=== PATIENT | male | born 1950 | race Caucasian/White ===

== ENCOUNTER 2022-01-09 23:44 | Emergency (ER) | payer MEDICARE ==
[~2022-01-09] VITALS: Ht 175 cm; Wt 94.3 kg
--- NOTE | 2022-01-09 23:52 | ED GI ---
General Stated Complaint: SYNCOPE Source of Information: Patient Exam Limitations: No Limitations History of Present Illness Date Seen by Provider: Jan 09, 2022 Time Seen by Provider: 23:38 Initial Comments 81-year-old male presents to the emergency department today for rectal bleeding. He had a colonoscopy on Tuesday and had a biopsy. He was fine on but started to have dark red blood per rectum on Tuesday. He states he has had 4-5 episodes daily of loose bloody stools since that time. He actually passed out this evening, has been getting more air in the last couple of days. He is not on any blood thinning medications. No hematuria. No changes in urine. No abdominal pain. No chest pain or shortness of breath. Allergies and Home Medications Allergies Coded Allergies: Sulfa (Sulfonamide Antibiotics) (Verified Allergy, Unknown, 01/10/22) Patient Home Medication List Home Medication List Reviewed: Yes Review of Systems Review of Systems Constitutional: no symptoms reported EENTM: No Symptoms Reported Respiratory: No Symptoms Reported Cardiovascular: No Symptoms Reported Gastrointestinal: Rectal Bleeding Genitourinary: No Symptoms Reported Musculoskeletal: no symptoms reported Skin: no symptoms reported Psychiatric/Neurological: Other (Syncope) Endocrine: No Symptoms Reported Hematologic/Lymphatic: No Symptoms Reported Past [id number] Hx Patient Social History Tobacco Use?: No Substance use?: No Alcohol Use?: Yes Family Medical History Reviewed Nursing Family Hx No Pertinent Family Hx Physical Exam Vital Signs Vital Signs - First Documented 01/09/22 23:44 Pulse 60 Resp 16 B/P (MAP) 158/83 (108) Pulse Ox 99 O2 Delivery Room Air Capillary Refill : Height/Weight/BMI Height: '" Weight: lbs. oz. 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, no motor/sensory deficits, alert, normal mood/affect, oriented x 3 Skin: normal color, warm/dry Progress/Results/Core Measures Results/Orders Lab Results Laboratory Tests Test 01/09/22 23:50 Range/Units White Blood Count 8.3 4.3-11.0 10^3/uL Red Blood Count 3.92 L 4.30-5.52 10^6/uL Hemoglobin 12.7 L 13.3-17.7 g/dL Hematocrit 38 L 40-54 % Mean Corpuscular Volume 97 80-99 fL Mean Corpuscular Hemoglobin 32 25-34 pg Mean Corpuscular Hemoglobin Concent 33 32-36 g/dL Red Cell Distribution Width 13.8 10.0-14.5 % Platelet Count 262 130-400 10^3/uL Mean Platelet Volume 9.2 9.0-12.2 fL Immature Granulocyte % (Auto) 1 % Neutrophils (%) (Auto) 80 H 42-75 % Lymphocytes (%) (Auto) 8 L 12-44 % Monocytes (%) (Auto) 10 0-12 % Eosinophils (%) (Auto) 1 0-10 % Basophils (%) (Auto) 1 0-10 % Neutrophils # (Auto) 6.6 1.8-7.8 10^3/uL Lymphocytes # (Auto) 0.7 L 1.0-4.0 10^3/uL Monocytes # (Auto) 0.9 0.0-1.0 10^3/uL Eosinophils # (Auto) 0.1 0.0-0.3 10^3/uL Basophils # (Auto) 0.0 0.0-0.1 10^3/uL Immature Granulocyte # (Auto) 0.0 0.0-0.1 10^3/uL Prothrombin Time 14.6 12.2-14.7 SEC INR Comment 1.1 0.8-1.4 Sodium Level 136 135-145 MMOL/L Potassium Level 3.8 3.6-5.0 MMOL/L Chloride Level 107 98-107 MMOL/L Carbon Dioxide Level 21 21-32 MMOL/L Anion Gap 8 5-14 MMOL/L Blood Urea Nitrogen 14 7-18 MG/DL Creatinine 1.01 0.60-1.30 MG/DL Estimat Glomerular Filtration Rate 80 BUN/Creatinine Ratio 14 Glucose Level 132 H 70-105 MG/DL Calcium Level 7.4 L 8.5-10.1 MG/DL Corrected Calcium 8.4 L 8.5-10.1 MG/DL Total Bilirubin 0.5 0.1-1.0 MG/DL Aspartate Amino Transf (AST/SGOT) 22 5-34 U/L Alanine Aminotransferase (ALT/SGPT) 23 0-55 U/L Alkaline Phosphatase 51 40-136 U/L Total Protein 4.8 L 6.4-8.2 GM/DL Albumin 2.7 L 3.2-4.5 GM/DL My Orders Orders - LORENZO ASHTON DO Protime With Inr (01/09/22 23:48) Abo Rh Type (01/09/22 23:48) Cbc With Automated Diff (01/09/22 23:48) Comprehensive Metabolic Panel (01/09/22 23:48) Vital Signs/I&O 01/09/22 23:44 Pulse 60 Resp 16 B/P (MAP) 158/83 (108) Pulse Ox 99 O2 Delivery Room Air 01/10/22 00:00 Intake Total 500 ml Balance 500 ml Departure Communication (Admissions) Patient is hemodynamically stable. Initially orthostatic, improved with IV fluids. Hemoglobin is normal. He is not having any active bleeding, only some blood with bowel movements. I think this is likely from his recent biopsy and not likely from an active GI bleed at this time. Vital signs are currently normal and he is asymptomatic. He is discharged home in stable condition with close follow-up and supportive care, strict return precautions. Impression Primary Impression: Orthostatic hypotension Additional Impression: Rectal bleed Disposition: 01 HOME, SELF-CARE Condition: Stable Departure-Patient Inst. Referrals: NO,LOCAL PHYSICIAN (PCP/Family) Primary Care Physician Patient Instructions: Bloody Stools, Adult ED, Syncope (Fainting) (DC) Add. Discharge Instructions: Your blood counts are normal. I believe your rectal bleeding is from your recent colonoscopy and will improve on its own. I think you passed out because your blood pressure dropped. This is improved with fluids and we have given you. Increase your fluids at home, rest as needed. Call Dr. Haskins co [email or web address] to get sooner follow-up, hopefully on Tuesday or Tuesday. Return to the emergency department for any shortness of breath, severe dizziness or if your symptoms change in any way concerning to you. POLI,LORENZO L DO Jan 09, 2022 23:52
[2022-01-10 00:07] LABS: BASOPHILS % (AUTO) 1 % (0-10); EOSINOPHILS # (AUTO) 0.1 10^3/uL (0.0-0.3); EOSINOPHILS % (AUTO) 1 % (0-10); HEMATOCRIT 38 % (40-54); HEMOGLOBIN 12.7 g/dL (13.3-17.7); LYMPHOCYTES # (AUTO) 0.7 10^3/uL (1.0-4.0); LYMPHOCYTES % (AUTO) 8 % (12-44); MEAN CORPUSCULAR HEMOGLOBIN 32 pg (25-34); MEAN CORPUSCULAR HGB CONC 33 g/dL (32-36); MEAN CORPUSCULAR VOLUME 97 fL (80-99); MEAN PLATELET VOLUME 9.2 fL (9.0-12.2); MONOCYTES # (AUTO) 0.9 10^3/uL (0.0-1.0); MONOCYTES % (AUTO) 10 % (0-12); NEUTROPHILS # (AUTO) 6.6 10^3/uL (1.8-7.8); NEUTROPHILS % (AUTO) 80 % (42-75); PLATELET COUNT 262 10^3/uL (130-400); WHITE BLOOD COUNT 8.3 10^3/uL (4.3-11.0)
[2022-01-10 00:13] LABS: ALBUMIN 2.7 GM/DL (3.2-4.5); POTASSIUM 3.8 MMOL/L (3.6-5.0)
[2022-01-10 00:14] LABS: CALCIUM 7.4 MG/DL (8.5-10.1)
[2022-01-10 00:15] LABS: TOTAL PROTEIN 4.8 GM/DL (6.4-8.2)
[2022-01-10 00:17] LABS: BILIRUBIN,TOTAL 0.5 MG/DL (0.1-1.0)
[2022-01-10 00:19] LABS: CREATININE SERUM 1.01 MG/DL (0.60-1.30)
[2022-01-10 00:27] LABS: INR 1.1 (0.8-1.4); PROTHROMBIN TIME PATIENT 14.6 SEC (12.2-14.7)
[2022-01-10 00:44] VITALS: BP_SYST 127; BP_SYST 133; BP_SYST 138; BP_DIAS 64; BP_DIAS 67; BP_DIAS 72
[2022-01-10 00:53] VITALS: BP 110/66
== END 2022-01-10 00:53 | disposition home or self-care (01) ==
LOC: ER 23:47 → EDBD 23:47 → ER 01-10 00:53
DX: K62.5 Hemorrhage of anus and rectum (principal); I95.1 Orthostatic hypotension
CPT/HCPCS: 36415; 80053; 85025; 85610; 86900; 86901